=== PATIENT | male | born 1955 ===

== ENCOUNTER 2022-07-15 05:50 | Day surgery (SDC) | payer OTHER ==
[~2022-07-15] VITALS: Ht 188 cm; Wt 87.5 kg
[~2022-07-15 05:50] MED LIST: SYNTHROID75 MCG
== END 2022-07-15 17:00 | disposition home or self-care (01) ==
LOC: CIR.AMB 05:50
PROVIDERS: ATTEND Orthopaedic Surgery Hand Surgery
DX: S46.292A Other injury of muscle, fascia and tendon of other parts of biceps, left arm, initial encounter (principal); Z20.822 Contact with and (suspected) exposure to COVID-19; E11.9 Type 2 diabetes mellitus without complications; E03.9 Hypothyroidism, unspecified